=== PATIENT | male | born 1990 | race Asian ===

== ENCOUNTER 2021-02-22 12:57 | Emergency (ER) | payer SELFPAY ==
[~2021-02-22] VITALS: Ht 175.3 cm; Wt 74.0 kg
[2021-02-22] MEDS ORDERED: ACETAMINOPHEN WITH CODEINE 300/30MG TABLET PO ONE (13:15)
[2021-02-22] MEDS ORDERED: TOPUD PO (14:37)
[2021-02-22 15:09] VITALS: BP 122/77
== END 2021-02-22 15:10 | disposition home or self-care (01) ==
LOC: ER 13:17
DX: S00.12XA Contusion of left eyelid and periocular area, initial encounter (principal); V43.52XA Car driver injured in collision with other type car in traffic accident, initial encounter; Y93.89 Activity, other specified; Y92.410 Unspecified street and highway as the place of occurrence of the external cause
CPT/HCPCS: 70486; 73070; 73502; 73560; 99285